=== PATIENT | male | born 1965 | race African-American/Black ===

== ENCOUNTER 2018-04-23 17:50 | Emergency (ER) | payer SELFPAY ==
[2018-04-23] MEDS ORDERED: IBUPROFEN 400 MG TAB ONE (19:39)
--- NOTE | 2018-04-23 20:43 | ER ---
Nurse's Notes [facility] Name: Burke Monte Age: 53 yrs Sex: Male : 1965 Arrival Date: 04/23/2018 Time: 17:54 Bed 15 Private MD: Diagnosis: Internal derangement of knee Presentation: 04/23 18:10 Presenting complaint: Right knee pain after fell during basketball game yesterday. hb Transition of care: patient was not received from another setting of care. Onset of symptoms was April 22, 2018. Risk Assessment: Do you want to hurt yourself or someone else? Patient reports no desire to harm self or others. Initial Sepsis Screen: Does the patient meet any 2 criteria? No. Patient's initial sepsis screen is negative. Does the patient have a suspected source of infection? No. Patient's initial sepsis screen is negative. Care prior to arrival: None. 18:10 Method Of Arrival: Ambulatory hb 18:10 Acuity: ALAYNA 4 hb Historical: - Allergies: 18:12 No Known Allergies; hb - Home Meds: 18:12 None [Active]; hb - PMHx: 18:12 None; hb - PSHx: 18:12 Knee - LEFT; hb - Immunization history:: Adult Immunizations up to date. - Social history:: Smoking status: Patient/guardian denies using tobacco. - Ebola Screening: : No symptoms or risks identified at this time. Screenin:10 Abuse screen: Denies threats or abuse. Nutritional screening: No deficits noted. jb4 Tuberculosis screening: No symptoms or risk factors identified. Fall Risk None identified. Assessment: 19:10 General: Appears in no apparent distress. uncomfortable, Behavior is calm, cooperative, jb4 appropriate for age. Pain: Complains of pain in right knee Pain does not radiate. Pain currently is 10 out of 10 on a pain scale. Quality of pain is described as burning, Pulling Pain began earlier today. Is continuous. Neuro: Level of Consciousness is awake, alert, obeys commands, Oriented to person, place, time, situation. Cardiovascular: Patient's skin is warm and dry. Respiratory: Airway is patent Respiratory effort is even, unlabored, Respiratory pattern is regular, symmetrical. GI: No signs and/or symptoms were reported involving the gastrointestinal system. : No signs and/or symptoms were reported regarding the genitourinary system. EENT: No signs and/or symptoms were reported regarding the EENT system. Derm: Skin is intact, Skin is dry, Skin is normal, Skin temperature is warm. Musculoskeletal: Circulation, motion, and sensation intact. Reports pain in right knee. 20:00 Reassessment: Patient appears in no apparent distress at this time. Patient and/or jb4 family updated on plan of care and expected duration. Pain level reassessed. Patient is alert, oriented x 3, equal unlabored respirations, skin warm/dry/pink. 20:58 Reassessment: Patient appears in no apparent distress at this time. Patient and/or jb4 family updated on plan of care and expected duration. Pain level reassessed. Patient is alert, oriented x 3, equal unlabored respirations, skin warm/dry/pink. Vital Signs: 18:12 BP 141 / 94; Pulse 70; Resp 16; Temp 98.1; Pulse Ox 100% on R/A; Pain 10/10; hb 19:55 BP 137 / 92; Pulse 66; Resp 16; Pulse Ox 100% on R/A; jb4 ED Course: 17:54 Patient arrived in ED. as 18:10 Arm band placed on. hb 18:11 Triage completed. hb 19:00 Bryson Jean-Baptiste PA is PHCP. [facility] 19:00 Lionel Anglea MD is Attending Physician. jm 19:10 Patient has correct armband on for positive identification. Bed in low position. Call jb4 light in reach. Side rails up X 1. Pulse ox on. NIBP on. 19:17 Knee Right 3 View XRAY In Process Unspecified. EDMS 19:25 Guzman García, RN is Primary Nurse. jb4 19:30 Knee immobilizer applied on right knee. jb4 20:43 Randall Arreola MD is Referral Physician. [facility] 20:57 No provider procedures requiring assistance completed. Patient did not have IV access jb4 during this emergency room visit. Administered Medications: 19:30 Drug: Ibuprofen 800 mg Route: PO; jb4 20:56 Follow up: Response: No adverse reaction; Pain is decreased jb4 Outcome: 20:43 Discharge ordered by MD. [facility] 20:57 Discharged to home ambulatory, with significant other. jb4 20:57 Condition: stable 20:57 Discharge instructions given to patient, significant other, Instructed on discharge instructions, follow up and referral plans. medication usage, crutch walking, Demonstrated understanding of instructions, follow-up care, medications, crutch walking, Prescriptions given X 1. 20:58 Patient left the ED. jb4 Signatures: Dispatcher [employer] EDMS Bryson Jean-Baptiste PA PA jmm Martinez, Amelia as Baxter, Heather, RN RN Guzman Pickens RN RN jb4 Corrections: (The following items were deleted from the chart) 18:12 18:12 Pulse 70bpm; Resp 16bpm; Pulse Ox 10%; Temp 98.1F; Pain 10/10; hb hb
--- NOTE | 2018-04-23 20:43 | EDPHYS ---
Physician Documentation [facility] Name: Burke Monte Age: 53 yrs Sex: Male : 1965 Arrival Date: 04/23/2018 Time: 17:54 Bed 15 Private MD: ED Physician Lionel Angela HPI: 04/23 19:09 This 53 yrs old Black Male presents to ER via Ambulatory with complaints of Knee Injury.jmm 19:09 The patient presents with an injury, pain. Onset: The symptoms/episode began/occurred jmm acutely, yesterday. This is a 53 year old male with no chronic medical conditions that presents to the ED with complaints of right knee pain which occurred after falling during a basketball game. Patient states his knee was flexed and then he fell on his back. Pain is on ROM. Denies other injury. . Historical: - Allergies: 18:12 No Known Allergies; hb - Home Meds: 18:12 None [Active]; hb - PMHx: 18:12 None; hb - PSHx: 18:12 Knee - LEFT; hb - Immunization history:: Adult Immunizations up to date. - Social history:: Smoking status: Patient/guardian denies using tobacco. - Ebola Screening: : No symptoms or risks identified at this time. ROS: 19:09 Constitutional: Negative for fever, chills, and weight loss, Cardiovascular: Negative jmm for chest pain, palpitations, and edema, Respiratory: Negative for shortness of breath, cough, wheezing, and pleuritic chest pain. 19:09 MS/extremity: Positive for injury or acute deformity, pain. 19:09 All other systems are negative. Exam: 19:09 Constitutional: This is a well developed, well nourished patient who is awake, alert, jmm and in no acute distress. Head/Face: atraumatic. Eyes: EOMI, no conjunctival erythema appreciated ENT: Moist Mucus Membranes Neck: Trachea midline, Supple Chest/axilla: Normal chest wall appearance and motion. Cardiovascular: Regular rate and rhythm. No edema appreciated Respiratory: Normal respirations, no respiratory distress appreciated Abdomen/GI: Non distended, soft Back: Normal ROM Skin: General appearance color normal 19:09 Musculoskeletal/extremity: painful extension noted, compartments are soft, full dorsalis pedis pulse NVI. 19:09 Skin: Appearance: Color: normal in color. 19:09 Neuro: Orientation: is normal, Mentation: is normal, Memory: is normal. 19:09 Psych: Behavior/mood is pleasant, cooperative. Vital Signs: 18:12 BP 141 / 94; Pulse 70; Resp 16; Temp 98.1; Pulse Ox 100% on R/A; Pain 10/10; hb 19:55 BP 137 / 92; Pulse 66; Resp 16; Pulse Ox 100% on R/A; jb4 MDM: 19:09 Patient medically screened. [facility] 20:41 Data reviewed: vital signs, nurses notes. Counseling: I had a detailed discussion with [facility] the patient and/or guardian regarding: the historical points, exam findings, and any diagnostic results supporting the discharge/admit diagnosis, radiology results, the need for outpatient follow up, to return to the emergency department if symptoms worsen or persist or if there are any questions or concerns that arise at home. ED course: Patient advised to follow up with orthopedics for further evaluation. patient given return precautions. patient understood and agrees with the plan of care. . 04/23 18:12 Order name: Knee Right 3 View XRAY; Complete Time: 02:26 04/23 19:15 Order name: Knee Immobilizer; Complete Time: 19:39 [facility] 04/23 20:45 Order name: Crutches; Complete Time: 20:56 [facility] Administered Medications: 19:30 Drug: Ibuprofen 800 mg Route: PO; jb4 20:56 Follow up: Response: No adverse reaction; Pain is decreased jb4 Disposition: 04/24 02:26 Co-signature as Attending Physician, Lionel Angela MD. rn Disposition: 04/23/18 20:43 Discharged to Home. Impression: Internal derangement of knee. - Condition is Stable. - Discharge Instructions: Knee Pain. - Prescriptions for Ibuprofen 800 mg Oral Tablet - take 1 tablet by ORAL route every 8 hours As needed take with food; 30 tablet. - Medication Reconciliation Form, Thank You Letter, Antibiotic Education, Prescription Opioid Use form. - Follow up: Randall Arreola MD; When: 2 - 3 days; Reason: Recheck today's complaints, Continuance of care, Re-evaluation by your physician. Signatures: Dispatcher [employer] EDMS Bryson Jean-Baptiste PA PA Lionel Ruffin MD MD rn Baxter, Heather, RN RN hb Bryson, Guzman, RN RN jb4 Corrections: (The following items were deleted from the chart) 04/23 20:58 20:43 04/23/2018 20:43 Discharged to Home. Impression: Internal derangement of knee. jb4 Condition is Stable. Forms are Medication Reconciliation Form, Thank You Letter, Antibiotic Education, Prescription Opioid Use. Follow up: Randall Arreola; When: 2 - 3 days; Reason: Recheck today's complaints, Continuance of care, Re-evaluation by your physician. vilma
--- NOTE | 2018-04-23 20:57 | RAD REPORT ---
EXAM DESCRIPTION: RAD - Knee Right 3 View - 04/23/2018 7:17 pm CLINICAL HISTORY: Right knee pain FINDINGS: 17 millimeter bony/calcific density lies adjacent to the superior aspect of the patella. T his may represent an avulsion fracture. It may be acute or chronic. Clinical correlation is needed to see if the patient has point tenderness to suggest that is acute. Small joint effusion is suspected. No dislocation is seen. Edema is present within the anterior subcutaneous tissues. If clinically indicated, MRI may helpful to further assess the patella, ligaments or menisci
== END 2018-04-23 20:58 | disposition home or self-care (01) ==
LOC: ER 17:50
DX: M23.91 Unspecified internal derangement of right knee (principal)
CPT/HCPCS: 99284